=== PATIENT | male | born 1970 | race Caucasian/White ===

== ENCOUNTER 2021-03-18 04:55 | Emergency (ER) | payer OTHER ==
[~2021-03-18] VITALS: Ht 182.9 cm; Wt 142.9 kg
[2021-03-18 05:35] LABS: URINE BILIRUBIN NEGATIVE (Negative); URINE BLOOD 2+ (Negative); URINE CLARITY CLEAR; URINE COLOR YELLOW; URINE GLUCOSE-RANDOM* NEGATIVE (Negative); URINE KETONES NEGATIVE (Negative); URINE LEUKOCYTES-REFLEX NEGATIVE (Negative); URINE NITRITE-REFLEX NEGATIVE (Negative); URINE PROTEIN (DIPSTICK) NEGATIVE (Negative); URINE SPECIFIC GRAVITY >= 1.030 (1.005-1.035); URINE UROBILINOGEN 0.2 E.U./dl (0.2-1.0)
[2021-03-18] MEDS ORDERED: KLOR-CON 10 ER10 MEQ PO (05:45)
[2021-03-18] MEDS ORDERED: LASIX 40 MG TAB40 MG PO (05:45)
[2021-03-18] MEDS ORDERED: LISINOPRIL20 MG PO (05:46)
[2021-03-18] MEDS ORDERED: FLEXERIL PO (05:46)
[2021-03-18] MEDS ORDERED: PROTONIX40 M4 PO (05:46)
[2021-03-18] MEDS ORDERED: TOPAMAX100 MG PO (05:47)
[2021-03-18 05:48] LABS: BACTERIA-REFLEX 1-9 Few /HPF (None Seen); HYALINE CASTS 0-3 Few /LPF (None Seen); SQUAMOUS 0-3 Few /LPF (0-3); URINE RBC 3-10 Few /HPF (NONE SEEN); URINE WBC-REFLEX 0-5 Rare /HPF (0-5)
[2021-03-18 05:49] LABS: CRYSTALS None Seen /LPF (None Seen)
[2021-03-18] MEDS ORDERED: FLOMAX0.4 MG PO (06:01)
[2021-03-18 06:28] VITALS: BP 136/69
== END 2021-03-18 06:30 | disposition home or self-care (01) ==
LOC: ER 04:55
PROVIDERS: Emergency Medicine
DX: R33.9 Retention of urine, unspecified (principal); I11.0 Hypertensive heart disease with heart failure; I50.9 Heart failure, unspecified; G43.909 Migraine, unspecified, not intractable, without status migrainosus; Z79.899 Other long term (current) drug therapy